=== PATIENT | male | born 1960 | race Caucasian/White ===

== ENCOUNTER → 2016-09-12 | Outpatient (CLI) | payer OTHER ==
--- NOTE | ~2016-09-12 | ECHO ---
Transthoracic Echocardiography Report (TTE) Demographics Patient Name JULIAN PERAZA Date of Study 09/12/2016 Patient Number [id number] Visit Number [id number] Date of 1960 Room Number Gender Male Number Age 56 year(s) Referring Satya Shea Mounter Kayce RVT, [facility] Physician ERIC Richards Physician Interpreting Jhonny Parnell MD Annealer Helper Physician Supervising Ordering Jhonny Parnell MD, MD/MLP Physician Nurse Stress Tool Polisher Conclusions Contractility Score Summary Normal Left Ventricular contractility was noted. Summary Technically difficult exam due to patient's body habitus. The estimated left ventricular ejection fraction is 60-65%. Moderate concentric left ventricular hypertrophy. Diastolic assessment reveals Grade I diastolic dysfunction. The left atrium is mildly dilated. There is mild aortic stenosis by the Continuity Equation. The peak velocity is 2.59 m/s, the mean gradient is 19 mmHg, and the valve area based on the continuity equation is 2.62 cm2, stroke volume index is 58.62 ml/m2. Procedure Type of Study TTE procedure:2D Echocardiogram, M-Mode, Doppler , Color Doppler. Procedure Date Date: 09/12/2016 Start: 02:23 PM Study Location: [facility] Technical Quality: Fair Indications:Murmur. Appropriate Use Criteria: 9 Patient Status: Routine HR: 82 bpm BP: 177/84 mmHg M-Mode/2D Measurements LV Diastolic Dimension: 4.79 cm LV Systolic Dimension: 2.39 cm LV Septum Diastolic: 1.67 cm LV PW Diastolic: 1.22 cm AO Root Dimension: 3.1 cm Cardiac Output: 13.32 l/min AV Cusp Separation: 0.9 cm RV Diastolic Dimension: 3.15 cm LA volume: 65 ml LVOT: 2.6 cm RV Base: 3.41 cm LVOT VTI: 30.6 cm RV Mid: 3.24 cm LV Stroke volume: 162.38 ml TAPSE: 2.07 cm TDI-S': 13.6 cm/s Doppler Measurements AV Peak Velocity: 2.59 m/s MV Peak E-Wave: 0.77 m/s AV Peak Gradient: 26.83 mmHg MV Peak A-Wave: 0.86 m/s AV Mean Gradient: 19 mmHg MV E/A Ratio: 0.9 LVOT Peak Velocity: 1.28 m/s MV P1/2t: 73 msec TR Gradient:5.76 mmHg PV Peak Velocity: 1.18 m/s Estimated RAP:10 mmHg PV Peak Gradient: 5.57 mmHg Estimated RVSP: 16 mmHg Estimated PASP: 15.76 mmHg E' Septal Velocity: 0.08 m/s A' Septal Velocity: 0.11 m/s E' Lateral Velocity: 0.12 m/s A' Lateral Velocity: 0.13 m/s Findings Left Ventricle Moderate concentric left ventricular hypertrophy. Diastolic assessment reveals Grade I diastolic dysfunction. Right Ventricle Normal right ventricle structure and function. Left Atrium Normal left atrial size. Right Atrium Normal right atrial size. Mitral Valve Mild mitral annular calcification. Trivial mitral regurgitation by color Doppler. Aortic Valve The aortic valve is mildly sclerotic. There is mild aortic stenosis by the Continuity Equation. The peak velocity is 2.59 m/s, the mean gradient is 19 mmHg, and the valve area based on the continuity equation is 2.62 cm2, stroke volume index is 58.62 ml/m2. Tricuspid Valve Trivial tricuspid regurgitation by color Doppler. Pulmonic Valve Mild pulmonic valve regurgitation by color Doppler. Pericardial Effusion No evidence of pericardial effusion. Pleural Effusion No evidence of pleural effusion. Contractility Score LV regional wall motion:(0-Non visualized 1-Normal 2-Hypokinesis 3-Akinesis 4-Dyskinesis 5-Aneurysm) Signature dtt: Parmjit Barry (cardio) dtd: 09/12/16 1423 Physician Self Edit
== END | disposition disaster alternative care site (69) ==
LOC: GCAR 13:57
DX: R01.1 Cardiac murmur, unspecified (principal); I51.7 Cardiomegaly; I72.9 Aneurysm of unspecified site; I35.0 Nonrheumatic aortic (valve) stenosis

== ENCOUNTER → 2016-10-02 | Outpatient (CLI) | payer OTHER | END | disposition disaster alternative care site (69) | LOC: GRAD 12:43 | DX: I77.810 Thoracic aortic ectasia (principal); I25.10 Atherosclerotic heart disease of native coronary artery without angina pectoris; I70.0 Atherosclerosis of aorta; J98.4 Other disorders of lung ==